=== PATIENT | male | born 1950 | race Caucasian/White ===

== ENCOUNTER 2017-11-19 06:41 | Day surgery (SDC) | payer OTHER ==
[2017-11-19 07:24] LABS: #Basophils 0.1 thou/uL (0.0-0.2); #Eosinphils 0.2 thou/uL (0.0-0.7); #Lymphocytes 2.5 thou/uL (1.20-3.40); #Monocytes 0.7 thou/uL (0.11-0.59); #Neutrophils 3.5 thou/uL (1.40-6.50); %Basophils 0.8 % (0.0-1.0); %Eosinophils 2.9 % (0.0-10.0); %Lymphocytes 36.1 % (21.0-51.0); %Monocytes 10.3 % (0.0-10.0); %Neutrophils 49.8 % (42.0-75.0); Hemoglobin 16.4 g/dL (14.0-18.0); Mean Corpuscular HGB CONC 34.1 g/dL (32.0-36.0); Mean Corpuscular Hemoglobin 32.3 pg (27.0-31.0); Mean Corpuscular Volume 94.5 fL (78.0-98.0); Mean Platelet Volume 7.5 fL (7.4-10.4); Platelet Count 166 thou/uL (130-400); RBC Distribution Width 11.9 % (11.5-14.5); Red Blood Cell (RBC) Count 5.07 mill/uL (4.70-6.10); White Blood Cell (WBC) Count 6.9 thou/uL (4.8-10.8)
[2017-11-19 07:29] LABS: INR-International Normal Ratio 1.1; PTT 38.2 SEC (22.9-36.1); Prothrombin Time 14.1 SEC (12.0-14.7)
[2017-11-19 08:05] VITALS: BP 154/81; TEMP 97.8
[2017-11-19 08:21] VITALS: BMI 36.6
[2017-11-19] MEDS ORDERED: Midazolam HCl 2 mg/2 ml Vial ONE (08:33)
[2017-11-19] MEDS ORDERED: Fentanyl 100 MCG/2 ML VIAL ONE (08:34)
[2017-11-19] MEDS ORDERED: Lidocaine 1% PF 5 ML VIAL ONE (08:34)
[2017-11-19] MEDS ORDERED: Sodium Bicarbonate 2.5 MEQ/5 ML VIAL ONE (08:34)
--- NOTE | 2017-11-19 12:37 | ULT ---
SONOGRAPHIC GUIDED RANDOM HEPATIC BIOPSY: HISTORY: Abnormal liver function tests. TECHNIQUE: After explaining the procedure and answering all questions, a sonographic survey of the liver was per formed. The liver is diffusely echogenic. A subxiphoid approach was not possible, given the positio n of the liver. A right lateral approach was planned. Sterile technique, buffered local anesthesia, sonographic guidance, and a right lateral approach were used to carefully advance a 19 gauge trocar needle into the right liver lobe parenchyma. A total of two core 18 gauge specimens were obtained and eventually submitted to pathology. The needle was rem aminah. No evidence of complications. The patient tolerated the procedure well and was returned [facility] good condition for further monitoring. IMPRESSION: Technically successful sonographic guided random hepatic biopsy. Pathology is pending. POS: UZIEL
== END 2017-11-19 10:05 | disposition home or self-care (01) ==
LOC: ULT 06:41 → EDSTATUS 09:00 → ULT 10:05
PROVIDERS: ATTEND Internal Medicine Gastroenterology
PROC: 0FB13ZX Excision of Right Lobe Liver, Percutaneous Approach, Diagnostic (ICD-10-PCS; principal; 2017-11-19)
DX: K75.81 Nonalcoholic steatohepatitis (NASH) (principal); R94.5 Abnormal results of liver function studies; Z87.891 Personal history of nicotine dependence; Z79.899 Other long term (current) drug therapy; Z88.7 Allergy status to serum and vaccine
CPT/HCPCS: 36415; 47000; 76942; 85025; 85610; 85730; 88307; 88313; J2001; J2250; J3010

== ENCOUNTER 2019-03-15 14:43 | Outpatient (CLI) | payer BC ==
--- NOTE | 2019-03-16 08:44 | MRI ---
MRI RIGHT KNEE WITHOUT CONTRAST: Date: 03/15/19 INDICATION: History of saw injury to right hand in October 2018. Patient had trigger finger surgery and carpal tunne l surgery with continued pain in the right hand. COMPARISON: None. FINDINGS: Surface marker was placed along the palmar aspect of the hand overlying the long finger metacarpal he ad. Subjacent to this region is FDS and FDP tendons, which appear intact. There is no evidence of fra nk bowstringing. There is fluid distention involving the tendon sheaths of the long and ring finger, proximal to the surface marker, suspicious for some mild tenosynovitis. This extends back to the leve l of the carpal tunnel. There is a remote appearing hook of the hamate fracture. There is advanced fi rst CMC osteoarthrosis. There are some scattered subchondral cyst-like abnormalities involving the daniella shawnee and capitellum. No inez wrist effusion is evident. There is healed deformity involving the ulna r styloid process. No acute fracture is grossly evident. IMPRESSION: 1. Findings of flexor tenosynovitis involving the long finger FDS and FDP tendons, and ring finger F DS and FDP tendons extending back from the mid palm to the level of the carpal tunnel. Visualized asp ects of the median nerve appear within normal limits. 2. Advanced first CMC osteoarthrosis. 3. Nonspecific scattered subchondral cyst-like abnormality involving the carpal bones. 4. Remote appearing hook of hamate fracture. POS: BH
== END 2019-03-15 14:44 | disposition home or self-care (01) ==
LOC: SCSMRI 14:43
PROVIDERS: ATTEND Orthopaedic Surgery Hand Surgery
DX: S66.001A Unspecified injury of long flexor muscle, fascia and tendon of right thumb at wrist and hand level, initial encounter (principal); M18.9 Osteoarthritis of first carpometacarpal joint, unspecified; M65.861 Other synovitis and tenosynovitis, right lower leg

== ENCOUNTER 2019-11-19 22:31 | Emergency (ER) | payer BC, MEDICARE ==
[2019-11-19] MEDS ORDERED: Morphine 4 MG/ML VIAL ONE (22:58)
--- NOTE | 2019-11-19 23:07 | RAD ---
EXAM: 3 views of the right knee HISTORY: Knee pain after fall COMPARISON: None FINDINGS: A small knee effusion is seen. The patient has a right knee prosthesis without perihardware lucency. There is a comminuted fracture of the patella. No fracture of the femur or tibia is seen. Moderate prepatellar soft tissue swelling is present. IMPRESSION: Comminuted patellar fracture
[2019-11-20 00:31] LABS: Anion Gap 11 mmol/L (10-20); BUN (Urea Nitrogen) 18 mg/dL (8.4-25.7); Calc. Creatinine Clearance 0 mL/min (70-130); Carbon Dioxide 25 mmol/L (23-31); Chloride 106 mmol/L (98-107); Estimated GFR-MDRD 72; Glucose 111 mg/dL (80-115); Potassium 4.1 mmol/L (3.5-5.1); Sodium 138 mmol/L (136-145)
--- NOTE | 2019-11-20 08:37 | CT ---
PRELIMINARY REPORT/[facility]/EMERGENCY AFTER HOURS PROCEDURE: EXAM: CT right Knee, with IV contrast CLINICAL HISTORY: 69-year-old male presents after a mechanical fall walking [place] the stairs [place] a [place] in [place]. This occurred a couple hours prior to ED arrival. Patient states he missed stepped and twisted and felt a pop and twisting motion in his right knee. This caused him to fall down a couple additiona l stairs and he landed on his right side. Patient states he is unsure if he landed directly onto the knee. He states he is not been able to walk on the right knee since then. Patient reports a history o f bilateral knee replacement surgery, with his right knee repaired and 2018. His orthopedic surgeon i s Dr. Forde. Patient denies any numbness and tingling distal to the right knee. Patient denies any sy mptoms prior to the fall, no chest pain or shortness of breath, did not hit his head, no blood thinne rs. Patient states he is not sure if his knee popped out of place, he does think that there might of been some popping and movement of the knee and feels like he may have gone back into place when he la nded TECHNIQUE: Axial images were acquired through the right knee with IV contrast. Reformatted images were reviewed. COMPARISON: None provided. FINDINGS: BONES: Osseous fragments about the patella compatible with comminuted patella fracture with moderate distrac tion of the superior fragments; findings moderately obscured secondary to metallic artifact from knee replacement. 5cm focally increased density at the distal femur questionable for enchondroma, partially obscured se condary to metallic artifact. Correlate clinically or may consider MRI. JOINTS: No dislocation. The joint spaces are normal. SOFT TISSUES: The soft tissues are unremarkable. MISCELLANEOUS: Moderate metallic artifact from bilateral knee replacement obscuring the tissues. No gross evidence of high-grade arterial stenosis. CT angiography of the knee. IMPRESSION: 1. No gross evidence of high-grade arterial stenosis. 2. Osseous fragments about the patella compatible with comminuted patella fracture with moderate dist raction of the superior fragments; findings moderately obscured secondary to metallic artifact from k nee replacement. ELECTRONICALLY SIGNED BY: Sg Roth MD Nov 20, 2019 1:17:01 AM CDT This report is intended for review by the ordering physician only, in accordance of law. If you recei ve this report in error, please call [facility] at [phone]. FINAL REPORT EMERGENCY AFTER HOURS CT ANGIOGRAM OF RIGHT KNEE: IMPRESSION: I agree with the preliminary interpretation given by [facility]. There is a comminuted, distrac joyce superior pole patellar fracture with associated prepatellar hematoma. There is no evidence for ar terial stenosis or injury. There is a stable low grade chondroid lesion present within the distal fem oral metaphyseal region. Post arthroplasty changes are seen without evidence for hardware complicatio n. POS: BRENDAN
== END 2019-11-20 01:43 | disposition home or self-care (01) ==
LOC: ERS 22:31
DX: S82.041A Displaced comminuted fracture of right patella, initial encounter for closed fracture (principal); I10 Essential (primary) hypertension; Z79.899 Other long term (current) drug therapy; X50.9XXA Other and unspecified overexertion or strenuous movements or postures, initial encounter
CPT/HCPCS: 36415; 80048; 96374; J2270

== ENCOUNTER 2021-09-07 15:30 | Observation (INO) | payer BC ==
[2021-09-07 16:34] LABS: #Eosinphils 0.1 thou/uL (0.0-0.7); #Lymphocytes 1.2 thou/uL (1.20-3.40); #Monocytes 0.8 thou/uL (0.11-0.59); #Neutrophils 5.6 thou/uL (1.40-6.50); %Basophils 0.3 % (0.0-1.0); %Eosinophils 1.1 % (0.0-10.0); %Lymphocytes 15.8 % (21.0-51.0); %Monocytes 9.8 % (0.0-10.0); Hemoglobin 15.6 g/dL (14.0-18.0); Mean Corpuscular HGB CONC 33.4 g/dL (32.0-36.0); Mean Corpuscular Hemoglobin 33.2 pg (27.0-31.0); Mean Corpuscular Volume 99.4 fL (78.0-98.0); Mean Platelet Volume 7.6 fL (7.4-10.4); Platelet Count 171 thou/uL (130-400); RBC Distribution Width 12.9 % (11.5-14.5); White Blood Cell (WBC) Count 7.7 thou/uL (4.8-10.8)
[2021-09-07 16:56] LABS: CK (CPK) 88 U/L (30-200); Lipase 48 U/L (8-78)
[2021-09-07] MEDS ORDERED: Mag-Al 1200 mg/1200 mg/30 ML UDCUP ONE (17:46)
[2021-09-07] MEDS ORDERED: Pantoprazole 40 MG VIAL ONE (17:46)
[2021-09-07] MEDS ORDERED: Lidocaine Viscous Sol 2% 15 ml UD Cup ONE (17:46)
[2021-09-07] MEDS ORDERED: Acetaminophen 325 MG TAB PO PRN (17:47)
[2021-09-07] MEDS ORDERED: hydrALAZINE 20 MG/ML VIAL SLOW IVP PRN (18:03)
[2021-09-07] MEDS ORDERED: Clopidogrel Bisulfate 75 MG TAB PO SCH (18:15)
[2021-09-07] MEDS ORDERED: Rosuvastatin 20 MG TAB PO SCH (21:00)
[2021-09-07] MEDS: Flecainide 50 MG TAB PO SCH (21:02)
[2021-09-07] MEDS: Apixaban 2.5 MG TAB PO SCH (21:03)
[2021-09-07 21:50] VITALS: BMI 36.9
[2021-09-07 21:58] LABS: Troponin I 0.019 ng/mL (< 0.028)
[2021-09-08 00:13] LABS: Troponin I 0.022 ng/mL (< 0.028)
[2021-09-08 05:11] LABS: #Eosinphils 0.1 thou/uL (0.0-0.7); #Monocytes 0.8 thou/uL (0.11-0.59); #Neutrophils 5.7 thou/uL (1.40-6.50); %Basophils 0.5 % (0.0-1.0); %Eosinophils 0.9 % (0.0-10.0); %Lymphocytes 23.5 % (21.0-51.0); %Monocytes 9.1 % (0.0-10.0); %Neutrophils 65.9 % (42.0-75.0); Hemoglobin 14.6 g/dL (14.0-18.0); Mean Corpuscular HGB CONC 32.5 g/dL (32.0-36.0); Mean Corpuscular Hemoglobin 32.6 pg (27.0-31.0); Platelet Count 158 thou/uL (130-400); RBC Distribution Width 12.3 % (11.5-14.5); Red Blood Cell (RBC) Count 4.48 mill/uL (4.70-6.10); White Blood Cell (WBC) Count 8.7 thou/uL (4.8-10.8)
[2021-09-08 05:32] LABS: Anion Gap 11 mmol/L (10-20); BUN (Urea Nitrogen) 15 mg/dL (8.4-25.7); Calc. Creatinine Clearance 104 mL/min (70-130); Calcium 9.1 mg/dL (7.8-10.44); Carbon Dioxide 27 mmol/L (23-31); Chloride 106 mmol/L (98-107); Cholesterol 114 mg/dl (< 200 Desired); Glucose 98 mg/dL (83-110); HDL Cholesterol 38 mg/dL (>60 Neg Risk); LDL Cholesterol, Calculated 51 mg/dL; Potassium 4.4 mmol/L (3.5-5.1); Sodium 140 mmol/L (136-145); Triglycerides 123 mg/dL (Less than 150)
[2021-09-08] MEDS ORDERED: Clopidogrel Bisulfate 75 MG TAB PO SCH (09:00)
[2021-09-08] MEDS: Mag-Al 1200 mg/1200 mg/30 ML UDCUP PO SCH ×2 (09:53→13:41)
[2021-09-08] MEDS: Flecainide 50 MG TAB PO SCH (09:54)
[2021-09-08] MEDS: Apixaban 2.5 MG TAB PO SCH (09:54)
[2021-09-08] MEDS ORDERED: Lorazepam 2 MG/ML VIAL SLOW IVP SCH (11:00)
[2021-09-08 12:08] LABS: SARS-CoV-2 PCR by NAA Not Detected (NotDetected)
[2021-09-08 15:33] VITALS: BP 140/76; TEMP 97.6
== END 2021-09-08 18:13 | disposition home or self-care (01) ==
LOC: ERS 15:30 → NEURO 17:01
PROVIDERS: ADMIT Emergency Medicine; ATTEND Emergency Medicine
DX: I63.89 Other cerebral infarction (principal); G81.94 Hemiplegia, unspecified affecting left nondominant side; G83.11 Monoplegia of lower limb affecting right dominant side; I48.0 Paroxysmal atrial fibrillation; I25.10 Atherosclerotic heart disease of native coronary artery without angina pectoris; I11.9 Hypertensive heart disease without heart failure; K21.9 Gastro-esophageal reflux disease without esophagitis; E78.5 Hyperlipidemia, unspecified; I44.0 Atrioventricular block, first degree; I08.3 Combined rheumatic disorders of mitral, aortic and tricuspid valves; Z85.46 Personal history of malignant neoplasm of prostate; Z79.01 Long term (current) use of anticoagulants; Z79.02 Long term (current) use of antithrombotics/antiplatelets; Z79.899 Other long term (current) drug therapy; Z88.7 Allergy status to serum and vaccine; Z95.5 Presence of coronary angioplasty implant and graft; Z20.822 Contact with and (suspected) exposure to COVID-19
CPT/HCPCS: 36415; 70450; 70551; 71045; 80048; 80061; 82550; 83690; 84443; 84484; 85025; 93005; 93306; 93880; 94660; 96361; 96374; 96375; C9113; G0378; J2060; U0003; U0005

== ENCOUNTER 2021-10-08 07:58 | Emergency (ER) | payer BC ==
[2021-10-08 10:09] LABS: #Eosinphils 0.1 thou/uL (0.0-0.7); #Lymphocytes 1.7 thou/uL (1.20-3.40); #Monocytes 0.6 thou/uL (0.11-0.59); #Neutrophils 4.6 thou/uL (1.40-6.50); %Basophils 0.3 % (0.0-1.0); %Eosinophils 0.8 % (0.0-10.0); %Lymphocytes 24.2 % (21.0-51.0); %Monocytes 8.4 % (0.0-10.0); %Neutrophils 66.3 % (42.0-75.0); Hemoglobin 16.1 g/dL (14.0-18.0); Mean Corpuscular HGB CONC 34.3 g/dL (32.0-36.0); Mean Corpuscular Volume 96.3 fL (78.0-98.0); Mean Platelet Volume 7.8 fL (7.4-10.4); Platelet Count 164 thou/uL (130-400); RBC Distribution Width 11.8 % (11.5-14.5); Red Blood Cell (RBC) Count 4.88 mill/uL (4.70-6.10); White Blood Cell (WBC) Count 6.9 thou/uL (4.8-10.8)
[2021-10-08 10:30] LABS: ALT (SGPT) 41 U/L (8-55); AST (SGOT) 30 U/L (5-34); Albumin 4.3 g/dL (3.4-4.8); Alkaline Phosphatase 58 U/L (40-110); Anion Gap 13 mmol/L (10-20); BUN (Urea Nitrogen) 15 mg/dL (8.4-25.7); Calc. Creatinine Clearance 0 mL/min (70-130); Calcium 9.8 mg/dL (7.8-10.44); Carbon Dioxide 26 mmol/L (23-31); Chloride 107 mmol/L (98-107); Globulin 3.2 g/dL (2.4-3.5); Glucose 107 mg/dL (83-110); Protein, Total 7.5 g/dL (5.8-8.1); Sodium 141 mmol/L (136-145)
== END 2021-10-08 11:03 | disposition home or self-care (01) ==
LOC: ERS 07:58
DX: I10 Essential (primary) hypertension (principal); I48.91 Unspecified atrial fibrillation; Z85.46 Personal history of malignant neoplasm of prostate; Z79.01 Long term (current) use of anticoagulants; Z79.82 Long term (current) use of aspirin; Z79.899 Other long term (current) drug therapy
CPT/HCPCS: 36415; 71045; 80053; 84484; 85025; 93005

== ENCOUNTER 2022-02-19 05:32 | Day surgery (SDC) | payer BC, MEDICARE ==
[2022-02-17 13:27] VITALS: BMI 36.9
[2022-02-19] MEDS ORDERED: Heparin 10,000 UNITS/ 10 ML VIAL ONE (07:02)
[2022-02-19] MEDS ORDERED: Protamine Sulfate 50 MG/5 ML VIAL ONE (07:02)
[2022-02-19] MEDS ORDERED: Heparin 25,000 units/D5W 500 ML ONE (07:02)
[2022-02-19] MEDS ORDERED: NEOSTIGMINE 3 MG/3 ML SYR 3 MG/3 ML SYRINGE ONE (08:04)
[2022-02-19] MEDS ORDERED: Glycopyrrolate 0.2 MG/ML 5 ML SYRINGE ONE (08:04)
[2022-02-19] MEDS ORDERED: Calcium Chloride 1 GM/10 ML Abboject SYRINGE ONE (08:04)
[2022-02-19] MEDS ORDERED: Dexamethasone 20 MG/5 ML VIAL ONE (08:04)
[2022-02-19] MEDS ORDERED: PROPOFOL 200 MG/20 ML VIAL ONE (08:04)
[2022-02-19] MEDS ORDERED: Succinylcholine Chloride 200 MG/10 ML VIAL ONE (08:04)
[2022-02-19] MEDS ORDERED: Rocuronium Bromide 10 MG/ML (10ML VIAL) ONE (08:04)
[2022-02-19] MEDS ORDERED: ePHEDrine 50 MG/ML VIAL ONE (08:04)
[2022-02-19] MEDS ORDERED: Ketorolac Tromethamine 30 MG/ML VIAL ONE (08:04)
[2022-02-19] MEDS ORDERED: Ondansetron PF 4 MG/2 ML Vial ONE (08:04)
[2022-02-19] MEDS ORDERED: Phenylephrine 10 MG/ML VIAL ONE (08:34)
[2022-02-19] MEDS ORDERED: FENTANYL 50 MCG/ML 1 ML VIAL ONE (09:12)
[2022-02-19] MEDS ORDERED: fentaNYL PF 100 MCG/2 ML SYRINGE ONE (12:04)
== END 2022-02-19 14:48 | disposition home or self-care (01) ==
LOC: SDC 05:32
PROVIDERS: ATTEND Internal Medicine Cardiovascular Disease
PROC: B246ZZ4 Ultrasonography of Right and Left Heart, Transesophageal (ICD-10-PCS; principal; 2022-02-19)
PROC: 02583ZZ Destruction of Conduction Mechanism, Percutaneous Approach (ICD-10-PCS; principal; 2022-02-19)
PROC: 4A0234Z Measurement of Cardiac Electrical Activity, Percutaneous Approach (ICD-10-PCS; principal; 2022-02-19)
PROC: 4A023FZ Measurement of Cardiac Rhythm, Percutaneous Approach (ICD-10-PCS; principal; 2022-02-19)
PROC: 02K83ZZ Map Conduction Mechanism, Percutaneous Approach (ICD-10-PCS; principal; 2022-02-19)
DX: I48.19 Other persistent atrial fibrillation (principal); I48.4 Atypical atrial flutter; I34.0 Nonrheumatic mitral (valve) insufficiency; I70.0 Atherosclerosis of aorta; G47.33 Obstructive sleep apnea (adult) (pediatric); M19.90 Unspecified osteoarthritis, unspecified site; I25.10 Atherosclerotic heart disease of native coronary artery without angina pectoris; E78.5 Hyperlipidemia, unspecified; M10.9 Gout, unspecified; I11.0 Hypertensive heart disease with heart failure; I50.30 Unspecified diastolic (congestive) heart failure; Z85.46 Personal history of malignant neoplasm of prostate; Z86.73 Personal history of transient ischemic attack (TIA), and cerebral infarction without residual deficits; Z87.891 Personal history of nicotine dependence; Z79.01 Long term (current) use of anticoagulants; Z79.02 Long term (current) use of antithrombotics/antiplatelets; Z79.899 Other long term (current) drug therapy; Z88.7 Allergy status to serum and vaccine; Z95.818 Presence of other cardiac implants and grafts
CPT/HCPCS: 85347; 93005; 93312; 93655; 93656; J0330; J1100; J1644; J1885; J2370; J2405; J2704; J2720; J3010; J3490

== ENCOUNTER 2022-06-02 05:39 | Day surgery (SDC) | payer BC, MEDICARE ==
[2022-06-01 09:38] VITALS: BMI 37.5
[2022-06-02] MEDS ORDERED: PROPOFOL 200 MG/20 ML VIAL ONE (07:20)
== END 2022-06-02 08:40 | disposition home or self-care (01) ==
LOC: SDC 05:39
PROVIDERS: ATTEND Internal Medicine Cardiovascular Disease
PROC: 5A2204Z Restoration of Cardiac Rhythm, Single (ICD-10-PCS; principal; 2022-06-02)
DX: I48.4 Atypical atrial flutter (principal); I48.0 Paroxysmal atrial fibrillation; I25.10 Atherosclerotic heart disease of native coronary artery without angina pectoris; I11.0 Hypertensive heart disease with heart failure; I50.30 Unspecified diastolic (congestive) heart failure; E78.5 Hyperlipidemia, unspecified; G47.33 Obstructive sleep apnea (adult) (pediatric); M10.9 Gout, unspecified; M19.90 Unspecified osteoarthritis, unspecified site; Z85.46 Personal history of malignant neoplasm of prostate; Z86.73 Personal history of transient ischemic attack (TIA), and cerebral infarction without residual deficits; Z87.891 Personal history of nicotine dependence; Z79.01 Long term (current) use of anticoagulants; Z79.02 Long term (current) use of antithrombotics/antiplatelets; Z79.899 Other long term (current) drug therapy; Z88.7 Allergy status to serum and vaccine
CPT/HCPCS: 92960; 93005; 93010; J2704

== ENCOUNTER 2022-11-19 09:08 | Outpatient (CLI) | payer BC, MEDICARE ==
[2022-11-19 11:00] LABS: #Eosinphils 0.2 10x3/uL (0.0-0.5); #Monocytes 1.3 10x3/uL (0.0-1.1); #Neutrophils 6.4 10x3/uL (1.5-8.4); %Basophils 0.4 % (0.0-2.0); %Eosinophils 2.1 % (0.0-6.0); %Lymphocytes 18.7 % (18.0-47.0); %Neutrophils 65.2 % (40.0-75.0); Hemoglobin 14.6 g/dL (13.5-17.5); Mean Corpuscular HGB CONC 33.1 g/dL (32.0-36.0); Mean Corpuscular Volume 93.6 fl (81.2-95.1); Mean Platelet Volume 10.2 fl (7.4-10.4); Platelet Count 216 10x3/uL (150-450); RBC Distribution Width 12.9 % (11.5-14.5); Red Blood Cell (RBC) Count 4.71 10x6/uL (4.32-5.72); White Blood Cell (WBC) Count 9.8 10x3/uL (3.5-10.5)
== END 2022-11-19 09:09 | disposition home or self-care (01) ==
LOC: LABBT 09:08
PROVIDERS: ATTEND Orthopaedic Surgery Hand Surgery
DX: Z01.812 Encounter for preprocedural laboratory examination (principal); G56.01 Carpal tunnel syndrome, right upper limb
CPT/HCPCS: 85025

== ENCOUNTER 2022-11-23 12:29 | Day surgery (SDC) | payer BC, MEDICARE ==
[2022-11-19 09:20] VITALS: BMI 36.6
[2022-11-23] MEDS ORDERED: fentaNYL PF 100 MCG/2 ML SYRINGE ONE (15:37)
[2022-11-23] MEDS ORDERED: Bacitracin Zinc Ointment 30 gm TUBE ONE (15:48)
[2022-11-23] MEDS ORDERED: Bupivacaine PF 0.5% 30 ML VIAL ONE (15:48)
[2022-11-23] MEDS ORDERED: Sodium Chloride 0.9% 100 ML ONE (15:54)
[2022-11-23] MEDS ORDERED: CEFAZOLIN 2 GM VIAL ONE (15:54)
[2022-11-23] MEDS ORDERED: PROPOFOL 200 MG/20 ML VIAL ONE (16:03)
[2022-11-23] MEDS ORDERED: Dexamethasone 20 MG/5 ML VIAL ONE (16:03)
[2022-11-23] MEDS ORDERED: Lidocaine 1% PF 5 ML VIAL ONE (16:03)
[2022-11-23] MEDS ORDERED: Ondansetron PF 4 MG/2 ML Vial ONE (16:03)
[2022-11-23] MEDS ORDERED: Betamet Acet/Betamet Na Ph 30 MG/5 ML VIAL ONE (16:47)
== END 2022-11-23 18:10 | disposition home or self-care (01) ==
LOC: SDC 12:29
PROVIDERS: ATTEND Orthopaedic Surgery Hand Surgery
PROC: 01N50ZZ Release Median Nerve, Open Approach (ICD-10-PCS; principal; 2022-11-23)
DX: M19.90 Unspecified osteoarthritis, unspecified site (principal); G56.03 Carpal tunnel syndrome, bilateral upper limbs; G56.23 Lesion of ulnar nerve, bilateral upper limbs; C61 Malignant neoplasm of prostate; G47.33 Obstructive sleep apnea (adult) (pediatric); I48.91 Unspecified atrial fibrillation; Z98.890 Other specified postprocedural states; Z79.899 Other long term (current) drug therapy
CPT/HCPCS: J0702; J1100; J2405; J2704; J3490; S0020

== ENCOUNTER 2022-12-22 06:02 | Day surgery (SDC) | payer BC, MEDICARE ==
[2022-12-17 14:52] VITALS: BMI 37.6
[2022-12-22] MEDS ORDERED: Bupivacaine PF 0.5% 30 ML VIAL ONE (08:14)
[2022-12-22] MEDS ORDERED: Bacitracin Zinc Ointment 30 gm TUBE ONE (08:14)
[2022-12-22 08:19] LABS: #Eosinphils 0.2 thou/uL (0.0-0.7); #Monocytes 0.9 thou/uL (0.11-0.59); #Neutrophils 4.3 thou/uL (1.40-6.50); %Basophils 0.5 % (0.0-1.0); %Eosinophils 2.1 % (0.0-10.0); %Lymphocytes 32.5 % (21.0-51.0); %Monocytes 10.9 % (0.0-10.0); %Neutrophils 53.4 % (42.0-75.0); Hematocrit 47.6 % (42.0-52.0); Hemoglobin 16.2 g/dL (14.0-18.0); Mean Corpuscular Hemoglobin 31.8 pg (27.0-31.0); Mean Corpuscular Volume 93.5 fl (78.0-98.0); Mean Platelet Volume 9.4 fL (7.4-10.4); Platelet Count 196 10x3/uL (130-400); RBC Distribution Width 12.9 % (11.5-14.5); Red Blood Cell (RBC) Count 5.09 mill/uL (4.70-6.10)
[2022-12-22] MEDS ORDERED: Sodium Chloride 0.9% 100 ML ONE (08:44)
[2022-12-22] MEDS ORDERED: CEFAZOLIN 2 GM VIAL ONE (08:44)
[2022-12-22 08:48] LABS: Anion Gap 14 mmol/L (10-20); BUN (Urea Nitrogen) 17 mg/dL (8.4-25.7); Calc. Creatinine Clearance 101 mL/min (70-130); Carbon Dioxide 23 mmol/L (23-31); Chloride 105 mmol/L (98-107); Estimated GFR 73; Glucose 110 mg/dL (83-110); Potassium 4.5 mmol/L (3.5-5.1); Sodium 137 mmol/L (136-145)
[2022-12-22] MEDS ORDERED: PROPOFOL 200 MG/20 ML VIAL ONE (08:57)
[2022-12-22] MEDS ORDERED: Lidocaine 1% PF 5 ML VIAL ONE (08:57)
== END 2022-12-22 11:05 | disposition home or self-care (01) ==
LOC: SDC 06:02
PROVIDERS: ATTEND Orthopaedic Surgery Hand Surgery
PROC: 01N50ZZ Release Median Nerve, Open Approach (ICD-10-PCS; principal; 2022-12-22)
DX: G56.02 Carpal tunnel syndrome, left upper limb (principal); I48.91 Unspecified atrial fibrillation; Z88.7 Allergy status to serum and vaccine
CPT/HCPCS: 36415; 80048; 85025; 93005; 93010; J2704; J3490; S0020

== ENCOUNTER 2024-05-26 10:07 | Outpatient (CLI) | payer MEDICARE, OTHER | END 2024-05-26 10:08 | disposition home or self-care (01) | LOC: SCSMRI 10:07 | PROVIDERS: ATTEND Family Medicine | DX: S43.421A Sprain of right rotator cuff capsule, initial encounter (principal) ==